=== PATIENT | female | born 1965 | race American Indian/Alaskan Native ===

== ENCOUNTER 2018-05-22 08:52 | Emergency (ER) | payer OTHER ==
[2018-05-22] MEDS ORDERED: BENADRYL IV ONE (10:26)
[2018-05-22] MEDS ORDERED: CATAPRES PO ONE (10:26)
[2018-05-22] MEDS ORDERED: REGLAN IV ONE (10:26)
[2018-05-22] MEDS ORDERED: NACL 0.9% 500 ML 500 ML IV ONE (10:27)
--- NOTE | 2018-05-22 10:32 | Emergency Department Report ---
ED Headache HPI - General Chief Complaint: Headache Stated Complaint: HEADACHE/BODY NUMBNESS Time Seen by Provider: 05/22/18 09:38 - History of Present Illness Initial Comments: 53-year-old female with history of hypertension and fibromyalgia presents to ED with complaint of headache. Patient reports occipital headache 3 weeks, worse this morning with associated dizziness and numbness and tingling in all 4 extremities. She denies nausea and vomiting. She denies fever. Patient states has been taking ibuprofen for pain but was instructed by her PCP to decrease use due to kidney function. Patient states this morning had a was more intense than usual. Also reports that this is not typically associated with her headache. Patient states was seen by her military technology manager yesterday and diagnosed with fibromyalgia. She has history of hypertension, reports taking BP meds this morning. Timing/Duration: 1-3 hours Quality: severe Recent Head Trauma: no recent headache/trauma, frequent headaches Associated Symptoms: denies: confusion, fever/chills, nausea/vomiting Allergies/Adverse Reactions: Allergies No Known Allergies Allergy (Unverified 05/10/13 13:00) Home Medications: Ambulatory Orders Amlodipine Besylate [Norvasc] 5 mg PO DAILY 05/10/13 Cyanocobalamin [Vitamin B-12] 1,000 mcg IM QMONTH 05/10/13 Lisinopril [Zestril] 12.5 mg PO QDAY 05/10/13 Butalb/Acetaminophen/Caffeine [Fioricet 50-300-40 mg CAP] 1 cap PO Q6HR PRN #10 cap 05/22/18 ED Review of Systems ROS: Stated complaint: HEADACHE/BODY NUMBNESS Other details as noted in HPI Comment: All other systems reviewed and negative Constitutional: denies: chills, fever Eyes: other (blurred vision) Cardiovascular: denies: chest pain Gastrointestinal: denies: nausea, vomiting Musculoskeletal: back pain, other (neck pain) Skin: denies: rash Neurological: headache, paresthesias, other (dizziness). denies: confusion ED Past Medical Hx - Past Medical History Hx Hypertension: Yes - Social History Smoking Status: Former Smoker Substance Use Type: None - Medications Home Medications: Home Medications Medication Instructions Recorded Confirmed Last Taken Type Amlodipine Besylate [Norvasc] 5 mg PO DAILY 05/10/13 05/17/13 05/17/13 History Cyanocobalamin [Vitamin B-12] 1,000 mcg IM QMONTH 05/10/13 05/17/13 05/15/13 History Lisinopril [Zestril] 12.5 mg PO QDAY 05/10/13 05/17/13 05/17/13 History Butalb/Acetaminophen/Caffeine 1 cap PO Q6HR PRN #10 cap 05/22/18 Unknown Rx [Fioricet 50-300-40 mg CAP] ED Physical Exam - General Limitations: No Limitations General appearance: alert, in no apparent distress, obese - Head Head exam: Present: atraumatic, normocephalic - Eye Eye exam: Present: normal appearance, PERRL, EOMI - ENT ENT exam: Present: mucous membranes moist - Neck Neck exam: Present: normal inspection, full ROM. Absent: tenderness, meningismus - Respiratory Respiratory exam: Present: normal lung sounds bilaterally. Absent: respiratory distress - Cardiovascular Cardiovascular Exam: Present: regular rate, normal rhythm - GI/Abdominal GI/Abdominal exam: Present: soft. Absent: tenderness - Extremities Exam Extremities exam: Present: normal inspection - Neurological Exam Neurological exam: Present: alert, oriented X3, CN II-XII intact. Absent: motor sensory deficit (strength 5/5 throughout; nml sensation present) - Psychiatric Psychiatric exam: Present: normal affect, normal mood - Skin Skin exam: Present: warm, dry, intact, normal color. Absent: rash ED Course Vital Signs 05/22/18 05/22/18 05/22/18 09:02 10:53 10:56 Temperature 97.5 F L Pulse Rate 87 63 63 Respiratory 20 Rate Blood Pressure 182/109 126/81 Blood Pressure 126/81 [Right] O2 Sat by Pulse 98 Oximetry ED Medical Decision Making - Lab Data Result diagrams: 05/22/18 10:55 05/22/18 10:55 - Radiology Data Radiology results: report reviewed, image reviewed - Medical Decision Making 53-year-old female with occipital headache for several weeks now present to the ED with worsening headache and paresthesias in all 4 extremities. Patient was initially hypertensive, however, BP resolved without medical intervention. Patient had normal neuro exam with no deficits present. CT scan negative. Urine and blood work also negative. Patient given IV fluids and Reglan and Benadryl. She reports is feeling much better and symptoms are resolving. Will discharge with prescription for Fioricet. Will also give information for neuro follow up since headache has been ongoing for 3 weeks. - Differential Diagnosis intracranial bleed; hypertensive RAMSEY; fibromyalgia Critical care attestation.: If time is entered above; I have spent that time in minutes in the direct care of this critically ill patient, excluding procedure time. ED Disposition Clinical Impression: Headache Disposition: DC-01 TO HOME OR SELFCARE Is pt being admited?: No Condition: Stable Instructions: Acute Headache (ED), Tension Headache (ED), Migraine Headache (ED ), Cluster Headache (ED) Prescriptions: Butalb/Acetaminophen/Caffeine [Fioricet 50-300-40 mg CAP] 1 cap PO Q6HR PRN #10 cap PRN Reason: Headache Referrals: PRIMARY CAREMD [Primary Care Provider] - 3-5 Days NEVILLE MARTINEZ MD [Staff Physician] - 3-5 Days Time of Disposition: 12:25
[2018-05-22 10:53] VITALS: BP 126/81
[2018-05-22 11:09] LABS: Bilirubin,Urine NEG (Negative); Blood,Urine NEG (Negative); Color,Urine Yellow (Yellow); Mucus,Urine FEW /HPF; Protein,Urine <15 mg/dL mg/dL (Negative); Urobilinogen,Urine < 2.0 mg/dL (<2.0)
--- NOTE | 2018-05-22 11:20 | Cat Scan Report ---
FINAL REPORT EXAM: CT HEAD/BRAIN WO CON HISTORY: headache TECHNIQUE: CT of the head was performed. No intravenous contrast was administered. PRIORS: None. FINDINGS: There is no evidence of intracranial hemorrhage. There is no edema, mass effect or midline shift. There are no abnormal extra-axial fluid collections. The ventricles are appropriate for brain volume. There is no skull fracture seen. The visualized aspects of the sinuses are clear. IMPRESSION: There is no acute intracranial abnormality identified.
[2018-05-22 11:24] LABS: RBC,Urine < 1.0 /HPF (0.0-6.0); WBC,Urine < 1.0 /HPF (0.0-6.0)
[2018-05-22 11:40] LABS: Basophils # (Auto) 0.1 K/mm3 (0.0-0.1); Basophils % (Auto) 0.8 % (0.0-1.8); Eosinophils # (Auto) 0.1 K/mm3 (0.0-0.4); Eosinophils % (Auto) 1.3 % (0.0-4.3); Hematocrit 38.7 % (30.3-42.9); Hemoglobin 12.5 gm/dl (10.1-14.3); Lymphocytes # (Auto) 2.5 K/mm3 (1.2-5.4); Lymphocytes % (Auto) 31.6 % (13.4-35.0); Mean Corpuscular HGB Conc 32 % (30-34); Mean Corpuscular Hemoglobin 30 pg (28-32); Mean Corpuscular Volume 92 fl (79-97); Monocytes # (Auto) 0.6 K/mm3 (0.0-0.8); Monocytes % (Auto) 8.1 % (0.0-7.3); Platelet Count 227 K/mm3 (140-440); Red Blood Count 4.21 M/mm3 (3.65-5.03); Red Cell Distribution Width 13.4 % (13.2-15.2)
[2018-05-22 11:41] LABS: BUN/Creatinine Ratio 18; Blood Urea Nitrogen 18 mg/dL (7-17); Calcium 9.5 mg/dL (8.4-10.2); Hemolysis Index 9
== END 2018-05-22 12:40 | disposition home or self-care (01) ==
LOC: ED 08:52
DX: R51 Headache (principal); R20.2 Paresthesia of skin; I10 Essential (primary) hypertension; M79.7 Fibromyalgia; Z87.891 Personal history of nicotine dependence
CPT/HCPCS: 36415; 70450; 80048; 81001; 85025; 93005; 93010; 96374; 96375; 99284; J1200; J2765; J7040

== ENCOUNTER 2020-02-14 11:10 | Inpatient (IN) | payer OTHER ==
[2020-02-14] MEDS ORDERED: ONDANSETRON 4 MG/2 ML INJ IV ONE ×2 (12:13→15:23)
[2020-02-14] MEDS ORDERED: SODIUM CHLORIDE 0.9% 1000 ML 1,000 ML IV ONE ×2 (12:13→15:16)
[2020-02-14] MEDS ORDERED: PANTOPRAZOLE 40 MG INJ IV ONE (12:46)
[2020-02-14 13:43] LABS: INR 1.08 (0.87-1.13)
[2020-02-14 13:44] LABS: Partial Thromboplastin Time 19.9 Sec. (24.2-36.6)
--- NOTE | 2020-02-14 13:47 | Emergency Department Report ---
ED Abdominal Pain HPI - General Chief Complaint: Abdominal Pain Stated Complaint: BLACK STOOL/NO APPLETITE Time Seen by Provider: 02/14/20 12:13 Source: patient Mode of arrival: Ambulatory Limitations: No Limitations - History of Present Illness Initial Comments: 55-year-old female with a past medical history of hypertension, fibromyalgia, intermittent headaches, previous right oophorectomy due to ovarian cyst with subsequent right lower quadrant incisional hernia repair presents to the hospital complains of nausea, headache, and abdominal pain x2-3 WEEKS. Patient reports decreased appetite and gradual 14 pound weight loss since January. Patient complains of ongoing dull intermittent right lower quadrant pain that is sharp with movement. Patient states she has had intermittent pain since her oophorectomy in the past. Patient taking Goody powders for pain and also taken meloxicam for musculoskeletal pain. Patient states today she developed multiple episodes of black diarrhea. She did take Pepto-Bismol yesterday. She denies fever, recent travel, or sick contacts. Denies history of peptic ulcer disease or GI bleed. Patient presents today with systolic pressure in the 80s and 90s. States that her last blood pressure was 118 systolic. She did not take her blood pressure medication this morning due to repeated episodes of diarrhea. She does endorse lightheadedness. Patient states she had a recent negative COVID test. - Related Data Home Medications Medication Instructions Recorded Confirmed Last Taken Amlodipine Besylate [Norvasc] 5 mg PO DAILY 05/10/13 05/17/13 05/17/13 Cyanocobalamin [Vitamin B-12] 1,000 mcg IM QMONTH 05/10/13 05/17/13 05/15/13 lisinopriL [Zestril] 12.5 mg PO QDAY 05/10/13 05/17/13 05/17/13 Previous Rx's Medication Instructions Recorded Last Taken Type Butalb/Acetaminophen/Caffeine 1 cap PO Q6HR PRN #10 cap 05/22/18 Unknown Rx [Fioricet 50-300-40 mg CAP] Allergies Allergy/AdvReac Type Severity Reaction Status Date / Time No Known Allergies Allergy Unverified 05/10/13 13:00 ED Review of Systems ROS: Stated complaint: BLACK STOOL/NO APPLETITE Other details as noted in HPI Comment: All other systems reviewed and negative ED Past Medical Hx - Past Medical History Hx Hypertension: Yes - Surgical History Past Surgical History?: Yes Additional Surgical History: Right oophorectomy for ovarian cyst. Right incisional/abdominal hernia repair - Social History Smoking Status: Former Smoker Substance Use Type: None - Medications Home Medications: Home Medications Medication Instructions Recorded Confirmed Last Taken Type Amlodipine Besylate [Norvasc] 5 mg PO DAILY 05/10/13 05/17/13 05/17/13 History Cyanocobalamin [Vitamin B-12] 1,000 mcg IM QMONTH 05/10/13 05/17/13 05/15/13 History lisinopriL [Zestril] 12.5 mg PO QDAY 05/10/13 05/17/13 05/17/13 History Butalb/Acetaminophen/Caffeine 1 cap PO Q6HR PRN #10 cap 05/22/18 Unknown Rx [Fioricet 50-300-40 mg CAP] ED Physical Exam - General Limitations: No Limitations - Other Other exam information: General: No acute distress Head: Atraumatic Eyes: normal appearance ENT: Moist mucous membranes Neck: Normal appearance, no midline tenderness Chest: Clear to auscultation bilaterally CV: Regular rate and rhythm Abdomen: Soft, normal bowel sounds, well-healed scar to the right lower quadrant area from previous surgery. Right lower quadrant tenderness without rebound or guarding on examination Rectal: Dark brown stool faintly guaiac positive, no gross blood Back: Normal inspection Extremity: Normal inspection, full range of motion Neuro: Alert O x 3, no facial asymmetry, speech clear, no gross motor sensory deficit Psych: Appropriate behavior Skin: No rash ED Course Vital Signs 02/14/20 02/14/20 02/14/20 12:15 13:30 14:56 Pulse Rate 72 80 82 Respiratory 20 20 20 Rate Blood Pressure 96/61 103/48 103/58 [Right] O2 Sat by Pulse 95 95 95 Oximetry ED Medical Decision Making - Lab Data Result diagrams: 02/14/20 12:52 02/14/20 12:52 Lab Results 02/14/20 02/14/20 02/14/20 Range/Units 12:20 12:52 12:52 WBC 16.2 H (4.5-11.0) K/mm3 RBC 3.73 (3.65-5.03) M/mm3 Hgb 11.3 (10.1-14.3) gm/dl Hct 33.8 (30.3-42.9) % MCV 91 (79-97) fl MCH 30 (28-32) pg MCHC 33 (30-34) % RDW 13.3 (13.2-15.2) % Plt Count 435 (140-440) K/mm3 Lymph % (Auto) 12.0 L (13.4-35.0) % [place] % (Auto) 7.6 H (0.0-7.3) % Eos % (Auto) 0.2 (0.0-4.3) % Baso % (Auto) 0.3 (0.0-1.8) % Lymph # 1.9 (1.2-5.4) K/mm3 [place] # 1.2 H (0.0-0.8) K/mm3 Eos # 0.0 (0.0-0.4) K/mm3 Baso # 0.1 (0.0-0.1) K/mm3 Seg Neutrophils % 79.9 H (40.0-70.0) % Seg Neutrophils # 12.9 H (1.8-7.7) K/mm3 PT 13.8 (12.2-14.9) Sec. INR 1.08 (0.87-1.13) APTT 19.9 L (24.2-36.6) Sec. Sodium (137-145) mmol/L Potassium (3.6-5.0) mmol/L Chloride (98-107) mmol/L Carbon Dioxide (22-30) mmol/L Anion Gap mmol/L BUN (7-17) mg/dL Creatinine (0.7-1.2) mg/dL Estimated GFR ml/min BUN/Creatinine Ratio % Glucose (65-100) mg/dL Calcium (8.4-10.2) mg/dL Total Bilirubin (0.1-1.2) mg/dL AST (5-40) units/L ALT (7-56) units/L Alkaline Phosphatase (35-129) units/L Total Protein (6.3-8.2) g/dL Albumin (3.9-5) g/dL Albumin/Globulin Ratio % Lipase (13-60) units/L Urine Color Dal[place] (Yellow) Urine Turbidity Cloudy (Clear) Urine pH 5.0 (5.0-7.0) Ur Specific [place] 1.024 (1.003-1.030) Urine Protein 30 mg/dl (Negative) mg/dL Urine Glucose (UA) Neg (Negative) mg/dL Urine Ketones Neg (Negative) mg/dL Urine Blood Neg (Negative) Urine Nitrite Neg (Negative) Urine Bilirubin Sm (Negative) Urine Ictotest Not Reportable Urine Urobilinogen 4.0 (<2.0) mg/dL Ur Leukocyte Esterase Tr (Negative) Urine WBC (Auto) 10.0 H (0.0-6.0) /HPF Urine RBC (Auto) 6.0 (0.0-6.0) /HPF U Epithel Cells (Auto) 9.0 (0-13.0) /HPF Urine Mucus 1+ /HPF Blood Type Antibody Screen 02/14/20 02/14/20 Range/Units 12:52 12:52 WBC (4.5-11.0) K/mm3 RBC (3.65-5.03) M/mm3 Hgb (10.1-14.3) gm/dl Hct (30.3-42.9) % MCV (79-97) fl MCH (28-32) pg MCHC (30-34) % RDW (13.2-15.2) % Plt Count (140-440) K/mm3 Lymph % (Auto) (13.4-35.0) % [place] % (Auto) (0.0-7.3) % Eos % (Auto) (0.0-4.3) % Baso % (Auto) (0.0-1.8) % Lymph # (1.2-5.4) K/mm3 [place] # (0.0-0.8) K/mm3 Eos # (0.0-0.4) K/mm3 Baso # (0.0-0.1) K/mm3 Seg Neutrophils % (40.0-70.0) % Seg Neutrophils # (1.8-7.7) K/mm3 PT (12.2-14.9) Sec. INR (0.87-1.13) APTT (24.2-36.6) Sec. Sodium 136 L (137-145) mmol/L Potassium 3.7 (3.6-5.0) mmol/L Chloride 94.7 L (98-107) mmol/L Carbon Dioxide 26 (22-30) mmol/L Anion Gap 19 mmol/L BUN 22 H (7-17) mg/dL Creatinine 1.8 H (0.7-1.2) mg/dL Estimated GFR 35 ml/min BUN/Creatinine Ratio 12 % Glucose 100 (65-100) mg/dL Calcium 9.7 (8.4-10.2) mg/dL Total Bilirubin 0.30 (0.1-1.2) mg/dL AST 15 (5-40) units/L ALT 17 (7-56) units/L Alkaline Phosphatase 75 (35-129) units/L Total Protein 8.0 (6.3-8.2) g/dL Albumin 3.3 L (3.9-5) g/dL Albumin/Globulin Ratio 0.7 % Lipase 25 (13-60) units/L Urine Color (Yellow) Urine Turbidity (Clear) Urine pH (5.0-7.0) Ur Specific [place] (1.003-1.030) Urine Protein (Negative) mg/dL Urine Glucose (UA) (Negative) mg/dL Urine Ketones (Negative) mg/dL Urine Blood (Negative) Urine Nitrite (Negative) Urine Bilirubin (Negative) Urine Ictotest Urine Urobilinogen (<2.0) mg/dL Ur Leukocyte Esterase (Negative) Urine WBC (Auto) (0.0-6.0) /HPF Urine RBC (Auto) (0.0-6.0) /HPF U Epithel Cells (Auto) (0-13.0) /HPF Urine Mucus /HPF Blood Type O POSITIVE Antibody Screen Negative - Radiology Data Radiology results: report reviewed CT head/brain wo con INDICATION / CLINICAL INFORMATION: 55 years Female; RAMSEY AND NAUSEA. TECHNIQUE: Routine CT head without contrast. All CT scans at this location are performed using CT dose reduction for ALARA by means of automated exposure control. COMPARISON: No previous exams are currently available for direct comparison. 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 The ventricular system is appropriate in size and configuration. There is no CT evidence of acute intracranial hemorrhage or significant mass effect. ORBITS: No significant abnormality of visualized orbits. SINUSES / MASTOIDS: No significant abnormality in the visualized paranasal sinuses or mastoid air cells. CRANIOCERVICAL JUNCTION: No significant abnormality. ADDITIONAL FINDINGS: None. IMPRESSION: 1. There is no CT evidence of acute intracranial process. CT ABDOMEN AND PELVIS WITHOUT CONTRAST HISTORY: RLQ PAIN, HX OF R oophorectomy and hernia repair COMPARISON: None. TECHNIQUE: Axial CT images were obtained through the abdomen and pelvis without IV contrast. Sagittal and coronal reformatted images. All CT scans at this location are performed using CT dose reduction for ALARA by means of automated exposure control. FINDINGS: CT ABDOMEN: Lung Bases: Clear. Liver: No significant abnormality. Biliary: No significant abnormality. Spleen: No significant abnormality. Unenlarged. Pancreas: No significant abnormality. Adrenals: No significant abnormality. Kidneys: No significant abnormality. Lymphatics: No lymphadenopathy. Vascu lature: Mild diffuse aortic and iliac calcifications. Bowel/Peritoneum: There are moderate inflammatory changes in the right lower quadrant in the vicinity of the appendix. The appendix appears to be retrocecal in location. There is trace free air in this area which could represent early perforation. No abscess. The remainder of the bowel loops are unremarkable. CT PELVIS: : No significant abnormality. Osseous Structures: Moderate thoracolumbar spondylosis. Additional Findings: Previous ventral wall hernia repair appears intact. IMPRESSION: Findings concerning for acute appendicitis as outlined above. - Medical Decision Making Patient presents with black stools, diarrhea, nausea, worsening right lower quadrant pain. Stool sample is dark in color and faintly positive. H&H normal. Patient admits to recent Pepto-Bismol use which could cause change in stool color. Patient has leukocytosis and appendicitis on CT. Possible microperforation. Zosyn ordered. Borderline hypotension treated with normal saline. Patient treated with Dilaudid and Zofran. Case discussed with on-call surgeon who will try to get patient on the schedule today. Hospitalist to admit patient Critical Care Time: No Critical care attestation.: If time is entered above; I have spent that time in minutes in the direct care of this critically ill patient, excluding procedure time. ED Disposition Clinical Impression: Acute appendicitis, UTI (urinary tract infection), History of right oophorectomy, Renal insufficiency Disposition: OP ADMIT IP TO THIS HOSP Is pt being admited?: Yes Does the pt Need Aspirin: No Condition: Stable Time of Disposition: 15:30 (Dr Ross/hosp)
[2020-02-14 13:57] LABS: Albumin 3.3 g/dL (3.9-5); Calcium 9.7 mg/dL (8.4-10.2)
[2020-02-14 14:03] LABS: Basophils # (Auto) 0.1 K/mm3 (0.0-0.1); Basophils % (Auto) 0.3 % (0.0-1.8); Eosinophils % (Auto) 0.2 % (0.0-4.3); Hematocrit 33.8 % (30.3-42.9); Hemoglobin 11.3 gm/dl (10.1-14.3); Lymphocytes # (Auto) 1.9 K/mm3 (1.2-5.4); Mean Corpuscular HGB Conc 33 % (30-34); Mean Corpuscular Volume 91 fl (79-97); Monocytes # (Auto) 1.2 K/mm3 (0.0-0.8); Monocytes % (Auto) 7.6 % (0.0-7.3); Platelet Count 435 K/mm3 (140-440); Red Blood Count 3.73 M/mm3 (3.65-5.03); Red Cell Distribution Width 13.3 % (13.2-15.2)
[2020-02-14] MEDS ORDERED: HYDROmorphone 1 MG/1 ML INJ IV ONE (14:51)
--- NOTE | 2020-02-14 14:53 | Cat Scan Report ---
CT head/brain wo con INDICATION / CLINICAL INFORMATION: 55 years Female; RAMSEY AND NAUSEA. TECHNIQUE: Routine CT head without contrast. All CT scans at this location are performed using CT dos e reduction for ALARA by means of automated exposure control. COMPARISON: No previous exams are currently available for direct comparison. FINDINGS: BRAIN / INTRACRANIAL CONTENTS: There appears be mild cerebral white matter disease most consistent wi th microvascular angiopathy. The ventricular system is appropriate in size and configuration. There i s no CT evidence of acute intracranial hemorrhage or significant mass effect. ORBITS: No significant abnormality of visualized orbits. SINUSES / MASTOIDS: No significant abnormality in the visualized paranasal sinuses or mastoid air arianne ls. CRANIOCERVICAL JUNCTION: No significant abnormality. ADDITIONAL FINDINGS: None. IMPRESSION: 1. There is no CT evidence of acute intracranial process. Signer Name: Ross Denise MD Signed: 02/14/2020 2:48 PM Workstation Name: [id number]
--- NOTE | 2020-02-14 15:05 | Cat Scan Report ---
CT ABDOMEN AND PELVIS WITHOUT CONTRAST HISTORY: RLQ PAIN, HX OF R oophorectomy and hernia repair COMPARISON: None. TECHNIQUE: Axial CT images were obtained through the abdomen and pelvis without IV contrast. Sagittal and coronal reformatted images. All CT scans at this location are performed using CT dose reduction for ALARA by means of automated exposure control. FINDINGS: CT ABDOMEN: Lung Bases: Clear. Liver: No significant abnormality. Biliary: No significant abnormality. Spleen: No significant abnormality. Unenlarged. Pancreas: No significant abnormality. Adrenals: No significant abnormality. Kidneys: No significant abnormality. Lymphatics: No lymphadenopathy. Vasculature: Mild diffuse aortic and iliac calcifications. Bowel/Peritoneum: There are moderate inflammatory changes in the right lower quadrant in the vicinity of the appendix. The appendix appears to be retrocecal in location. There is trace free air in this area which could represent early perforation. No abscess. The remainder of the bowel loops are unrema rkable. CT PELVIS: : No significant abnormality. Osseous Structures: Moderate thoracolumbar spondylosis. Additional Findings: Previous ventral wall hernia repair appears intact. IMPRESSION: Findings concerning for acute appendicitis as outlined above. Critical result discovered at 1500 hours and called to Dr. Bardales at 1501 hours on 02/14/2020. A read ba ck was performed. Signer Name: Jimbo Copeland Jr, MD Signed: 02/14/2020 3:00 PM Workstation Name: [id number]
[2020-02-14] MEDS ORDERED: PIPERACIL/TAZOBACTA 4.5/NS 100 4.5 GM/100 ML VIAL IV ONE (15:09)
[2020-02-14 15:21] LABS: Bilirubin,Urine SM (Negative); Blood,Urine NEG (Negative); Color,Urine Amber (Yellow); Mucus,Urine 1+ /HPF
[2020-02-14] MEDS ORDERED: ACETAMINOPHEN 325 MG TAB PO PRN (15:32)
[2020-02-14] MEDS ORDERED: ONDANSETRON 4 MG/2 ML INJ IV PRN ×2 (15:32→16:08)
--- NOTE | 2020-02-14 15:35 | History and Physical Report ---
History of Present Illness Chief complaint: My stomach hurts History of present illness: 55 YO Female with HTN, FM, Obesity Hypoventilation Syndrome presents to ED for evaluation. Patient states that she had experienced abdominal pain over the past 3 weeks with progressively worsening symptoms over the past 4 days. Patient knowledges decreased oral intake over the past 3 weeks resulting in a 14 pound weight loss. Patient also reports blood in her stool over the past 1 day. Patient states that her abdominal pain is currently 6/10, constant, dull in nature, associated with decreased appetite, associated with nausea, and multiple episodes of vomiting. Patient transported to [facility] via private vehicle for [facility] care and evaluation. Patient seen and evaluated in the emergency department. Lab and imaging studies reviewed. Patient underwent CT scan of the abdomen and pelvis which revealed appendicitis with perforation. Patient also found to have acute kidney injury, urinary tract infection, as well as systemic inflammatory response syndrome, and hyponatremia. Patient admitted to surgical floor for fu rther care. Surgical team consulted in ED. Patient denies fever, chills, chest pain, palpitation, productive cough, skin rash, known exposure to COVID-19. Past History Past Medical History: hypertension, other (See HPI) Past Surgical History: hernia repair, Other (Right oophorectomy for ovarian cyst. Right incisional/abdominal hernia repair) Social history: , lives with family. denies: smoking, alcohol abuse, prescription drug abuse Family history: hypertension Medications and Allergies Allergies Allergy/AdvReac Type Severity Reaction Status Date / Time No Known Allergies Allergy Unverified 05/10/13 13:00 Home Medications Medication Instructions Recorded Confirmed Last Taken Type Amlodipine Besylate [Norvasc] 5 mg PO DAILY 05/10/13 05/17/13 05/17/13 History Cyanocobalamin [Vitamin B-12] 1,000 mcg IM QMONTH 05/10/13 05/17/13 05/15/13 History lisinopriL [Zestril] 12.5 mg PO QDAY 05/10/13 05/17/13 05/17/13 History Butalb/Acetaminophen/Caffeine 1 cap PO Q6HR PRN #10 cap 05/22/18 Unknown Rx [Fioricet 50-300-40 mg CAP] Active Meds: Active Medications Piperacillin Sod/Tazobactam Sod (Zosyn/Ns 4.5gm/100ml) 4.5 gm in 100 mls @ 200 mls/hr IV ONCE ONE; Protocol Stop: 02/14/20 15:38 Last Admin: 02/14/20 15:20 Dose: 200 mls/hr Documented by: Sodium Chloride (Nacl 0.9% 1000 Ml) 1,000 mls @ 999 mls/hr IV BOLUS ONE Stop: 02/14/20 16:16 Last Admin: 02/14/20 15:26 Dose: 999 mls/hr Documented by: Sodium Chloride (Nacl 0.9% 1000 Ml) 1,000 mls @ 150 mls/hr IV DIRECT CONCHA Review of Systems Constitutional: weight loss, no weight gain, no fever, no chills Ears, nose, mouth and throat: no ear pain, no ear discharge, no tinnitis, no decreased hearing Breasts: no change in shape, no swelling, no mass Cardiovascular: no chest pain, no orthopnea, no palpitations, no rapid/irregular heart beat, no edema, no syncope Respiratory: no cough, no cough with sputum, no excessive sputum, no hemoptysis, no shortness of breath Gastrointestinal: abdominal pain, nausea, vomiting, no coffee ground emesis, no hematochezia, no loss of appetite, no early satiety, no heartburn Genitourinary Female: no pelvic pain, no flank pain, no menorrhagia, no dysuria, no urinary frequency, no urgency Rectal: no pain, no incontinence, no bleeding Musculoskeletal: no neck stiffness, no neck pain, no shooting arm pain, no arm numbness/tingling, no low back pain, no shooting leg pain Integumentary: no rash, no pruritis, no redness, no sores, no jaundice Neurological: no paralysis, no weakness, no parathesias, no numbness, no tingling, no seizures, no syncope Psychiatric: no anxiety, no memory loss, no sleep disturbances, no insomnia, no change in libido, no suicidal ideation, no disorientation Endocrine: no cold intolerance, no heat intolerance, no polyphagia, no excessive thirst, no polydipsia, no polyuria, no nocturia Hematologic/Lymphatic: no easy bruising, no easy bleeding Allergic/Immunologic: no urticaria, no allergic rhinitis, no wheezing Exam - Constitutional Vitals: Temp Pulse Resp BP Pulse Ox 82 20 103/58 95 02/14/20 14:56 02/14/20 14:56 02/14/20 14:56 02/14/20 14:56 General appearance: Present: mild distress, obese - EENT Eyes: Present: PERRL ENT: hearing intact, clear oral mucosa - Neck Neck: Present: supple, normal ROM - Respiratory Respiratory effort: normal Respiratory: bilateral: CTA - Cardiovascular Heart Sounds: Present: S1 & S2. Absent: rub, click - Extremities Extremities: pulses symmetrical, No edema Peripheral Pulses: within normal limits - Abdominal General gastrointestinal: Present: soft, non-tender, non-distended, normal bowel sounds Localized gastrointestinal: tender: RLQ Female genitourinary: Present: normal - Integumentary Integumentary: Present: clear, warm, dry - Musculoskeletal Musculoskeletal: gait normal, strength equal bilaterally - Psychiatric Psychiatric: appropriate mood/affect, intact judgment & insight - Neurologic Neurologic: CNII-XII intact, moves all extremities Results - Labs CBC & Chem 7: 02/14/20 12:52 02/14/20 12:52 Labs: Abnormal lab results 02/14/20 02/14/20 02/14/20 Range/Units 12:20 12:52 12:52 WBC 16.2 H (4.5-11.0) K/mm3 Lymph % (Auto) 12.0 L (13.4-35.0) % [place] % (Auto) 7.6 H (0.0-7.3) % [place] # 1.2 H (0.0-0.8) K/mm3 Seg Neutrophils % 79.9 H (40.0-70.0) % Seg Neutrophils # 12.9 H (1.8-7.7) K/mm3 APTT 19.9 L (24.2-36.6) Sec. Sodium (137-145) mmol/L Chloride (98-107) mmol/L BUN (7-17) mg/dL Creatinine (0.7-1.2) mg/dL Albumin (3.9-5) g/dL Urine WBC (Auto) 10.0 H (0.0-6.0) /HPF 02/14/20 Range/Units 12:52 WBC (4.5-11.0) K/mm3 Lymph % (Auto) (13.4-35.0) % [place] % (Auto) (0.0-7.3) % [place] # (0.0-0.8) K/mm3 Seg Neutrophils % (40.0-70.0) % Seg Neutrophils # (1.8-7.7) K/mm3 APTT (24.2-36.6) Sec. Sodium 136 L (137-145) mmol/L Chloride 94.7 L (98-107) mmol/L BUN 22 H (7-17) mg/dL Creatinine 1.8 H (0.7-1.2) mg/dL Albumin 3.3 L (3.9-5) g/dL Urine WBC (Auto) (0.0-6.0) /HPF Assessment and Plan - Patient Problems (1) Appendicitis with perforation Current Visit: Yes Status: Acute Plan to address problem: CT scan abdomen and pelvis, serial physical exam, surgery team consulted, IV antibiotic therapy, IV fluid resuscitation therapy, bowel rest, pain control, supportive care. (2) Acute kidney injury (DELICIA) with acute tubular necrosis (ATN) Current Visit: Yes Status: Acute Plan to address problem: CMP, IV fluid resuscitation therapy, monitor urine output every shift, (3) Systemic inflammatory response syndrome (SIRS) due to infectious process Current Visit: Yes Status: Acute Plan to address problem: CBC, CMP, chest x-ray, urinalysis, CT scan abdomen and pelvis, IV antibiotic therapy, repeat CBC in a.m. (4) Hyponatremia Current Visit: Yes Status: Acute Plan to address problem: IV fluid resuscitation therapy, BMP, repeat BMP in a.m. (5) UTI (urinary tract infection) Current Visit: Yes Status: Acute Qualifiers: Encounter type: initial encounter Plan to address problem: CBC, CMP, urinalysis, IV antibiotic therapy (6) Obesity hypoventilation syndrome Current Visit: Yes Status: Acute Plan to address problem: Submental oxygen, pulse oximetry, early ambulation, incentive spirometry, balanced diet, increase physical activity at discharge, outpatient bariatric surgery consult, outpatient pulmonology consult for sleep study. (7) DVT prophylaxis Current Visit: Yes Status: Acute Plan to address problem: SCD to bilateral lower extremities while in bed, patient is ambulatory
[2020-02-14] MEDS ORDERED: SODIUM CHLORIDE 0.9% 1000 ML 1,000 ML IV SCH (15:45)
[2020-02-14] MEDS ORDERED: fentaNYL 100 MCG/2 ML INJ IV PRN (16:08)
[2020-02-14] MEDS ORDERED: LIDOCAINE MPF (2%) 20 MG/1 ML VIAL 5 ML ONE (16:08)
[2020-02-14] MEDS ORDERED: ROCURONIUM 50 MG/5 ML INJ IV ONE (16:08)
[2020-02-14] MEDS ORDERED: ONDANSETRON 4 MG/2 ML INJ ONE (16:08)
[2020-02-14] MEDS ORDERED: dexAMETHasone 20 MG/5 ML VIAL ONE (16:08)
--- NOTE | 2020-02-14 16:08 | Anesthesia Day of Surgery ---
Anesthesia Day of Surgery - Day of Surgery Patient Examined: Yes Patient H&P Reviewed: Yes Patient is NPO: Yes
--- NOTE | 2020-02-14 16:08 | Anesthesia Consultation ---
Anesthesia Consult and Med Hx Date of service: 02/14/20 - Airway Anesthetic Teeth Evaluation: Good ROM Head & Neck: Adequate Mental/Hyoid Distance: Adequate Mallampati Class: Class I Intubation Access Assessment: Good - Pulmonary Exam CTA: Yes - Cardiac Exam Cardiac Exam: RRR - Pre-Operative Health Status ASA Pre-Surgery Classification: ASA3 Proposed Anesthetic Plan: General - Pulmonary Hx Smoking: Yes (1/2PPD) Hx Respiratory Symptoms: No - Cardiovascular System Hx Hypertension: Yes (no antihypertensives today ) Hx Heart Attack/AMI: No Hx Percutaneous Transluminal Coronary Angioplasty (PTCA): No Hx Cardia Arrhythmia: No - Central Nervous System CVA: No - Gastrointestinal Hx Gastroesophageal Reflux Disease: No - Endocrine Hx Renal Disease: Yes (DELICIA (baseline master esthetician 1.0 per chart review)) Hx Liver Disease: No Hx Insulin Dependent Diabetes: No Hx Non-Insulin Dependent Diabetes: No Hx Thyroid Disease: No - Hematic Hx Anemia: Yes - Other Systems Hx Obesity: Yes (BMI 50) - Additional Comments Anesthesia Medical History Comments: No hx anesthetic complications. + abdominal pain, nausea, no vomiting. Hx fibromyalgia on meloxicam and gabapentin.
[2020-02-14] MEDS ORDERED: propofoL 200 MG/20 ML VIAL IV ONE (16:09)
[2020-02-14] MEDS ORDERED: HYDROmorphone 1 MG/1 ML INJ ONE (16:09)
--- NOTE | 2020-02-14 16:13 | Consultation ---
History of Present Illness Consult date: 02/14/20 Reason for consult: abdominal pain Chief complaint: Abdominal pain - History of present illness History of present illness: 55-year-old female with a past medical history of fibromyalgia, laparoscopic rig ht oophorectomy, laparoscopic ventral hernia repair with mesh who presented to the emergency room with 2 weeks of right lower quadrant abdominal pain. The patient states that at baseline with her fibromyalgia she sometimes has pain and so she felt this was similar to that. However the pain has remained constant and gradually gotten worse. Is localized to the right lower quadrant and does not radiate. There is no alleviating or exacerbating factors. She states that she has lost 15 pounds in the last 3 weeks due to anorexia. She has had nausea but no vomiting. No fevers, chills. She was tested for COVID 1 week ago and was negative. Past History Past Medical History: other (Fibromyalgia, spinal stenosis, hypertension) Past Surgical History: Other (Laparoscopic right oophorectomy, laparoscopic ventral hernia repair with mesh, right rotator cuff surgery, left knee surgery) Social history: no significant social history Family history: no significant family history Medications and Allergies Allergies Allergy/AdvReac Type Severity Reaction Status Date / Time No Known Allergies Allergy Unverified 05/10/13 13:00 Home Medications Medication Instructions Recorded Confirmed Last Taken Type Amlodipine Besylate [Norvasc] 5 mg PO DAILY 05/10/13 05/17/13 05/17/13 History Cyanocobalamin [Vitamin B-12] 1,000 mcg IM QMONTH 05/10/13 05/17/13 05/15/13 History lisinopriL [Zestril] 12.5 mg PO QDAY 05/10/13 05/17/13 05/17/13 History Butalb/Acetaminophen/Caffeine 1 cap PO Q6HR PRN #10 cap 05/22/18 Unknown Rx [Fioricet 50-300-40 mg CAP] Active Meds: Active Medications Acetaminophen (Tylenol) 650 mg PO Q4H PRN PRN Reason: Pain MILD(1-3)/Fever >100.5/RAMSEY Amlodipine Besylate (Amlodipine) 5 mg PO QDAY CONCHA Cyanocobalamin (Vitamin B-12) 1,000 mcg IM QMONTH CONCHA Fentanyl (Sublimaze) 50 mcg IV Q5MIN PRN PRN Reason: Pain , Severe (7-10) Sodium Chloride (Nacl 0.9% 1000 Ml) 1,000 mls @ 999 mls/hr IV BOLUS ONE Stop: 02/14/20 16:16 Last Admin: 02/14/20 15:26 Dose: 999 mls/hr Documented by: Sodium Chloride (Nacl 0.9% 1000 Ml) 1,000 mls @ 150 mls/hr IV DIRECT CONCHA Levofloxacin/Dextrose (Levaquin 500mg/100ml) 500 mg in 100 mls @ 100 mls/hr IV Q24H CONCHA; Protocol Metronidazole (Flagyl 500 Mg/100 Ml) 500 mg in 100 mls @ 100 mls/hr IV Q8H CONCHA; Protocol Sodium Chloride (Nacl 0.9% 1000 Ml) 1,000 mls @ 100 mls/hr IV DIRECT CONCHA Lisinopril (Zestril) 12.5 mg PO QDAY CONCHA Ondansetron HCl (Zofran) 4 mg IV Q8H PRN PRN Reason: Nausea And Vomiting Ondansetron HCl (Zofran) 4 mg IV ONCE PRN PRN Reason: Nausea And Vomiting Sodium Chloride (Sodium Chloride Flush Syringe 10 Ml) 10 ml IV BID CONCHA Sodium Chloride (Sodium Chloride Flush Syringe 10 Ml) 10 ml IV PRN PRN PRN Reason: LINE FLUSH Review of Systems All systems: negative (10 point review of systems was performed negative except for that listed in HPI) Exam Vital Signs Pulse Resp BP Pulse Ox 72 20 96/61 95 02/14/20 12:15 02/14/20 12:15 02/14/20 12:15 02/14/20 12:15 Narrative exam: Gen.: Awake, alert, oriented 3. No apparent distress ENT: Trachea midline. No lymphadenopathy. No scleral icterus or conjunctival pallor CV: S1, S2 present Respiratory: No audible wheezes Abdomen: Soft, obese, nondistended, localized tenderness to palpation in the right lower quadrant. Positive voluntary guarding. No rebound or rigidity Extremities: No clubbing, cyanosis, edema Results - Labs 02/14/20 12:52 02/14/20 12:52 Abnormal lab results 02/14/20 02/14/20 02/14/20 Range/Units 12:20 12:52 12:52 WBC 16.2 H (4.5-11.0) K/mm3 Lymph % (Auto) 12.0 L (13.4-35.0) % [place] % (Auto) 7.6 H (0.0-7.3) % [place] # 1.2 H (0.0-0.8) K/mm3 Seg Neutrophils % 79.9 H (40.0-70.0) % Seg Neutrophils # 12.9 H (1.8-7.7) K/mm3 APTT 19.9 L (24.2-36.6) Sec. Sodium (137-145) mmol/L Chloride (98-107) mmol/L BUN (7-17) mg/dL Creatinine (0.7-1.2) mg/dL Albumin (3.9-5) g/dL Urine WBC (Auto) 10.0 H (0.0-6.0) /HPF 02/14/20 Range/Units 12:52 WBC (4.5-11.0) K/mm3 Lymph % (Auto) (13.4-35.0) % [place] % (Auto) (0.0-7.3) % [place] # (0.0-0.8) K/mm3 Seg Neutrophils % (40.0-70.0) % Seg Neutrophils # (1.8-7.7) K/mm3 APTT (24.2-36.6) Sec. Sodium 136 L (137-145) mmol/L Chloride 94.7 L (98-107) mmol/L BUN 22 H (7-17) mg/dL Creatinine 1.8 H (0.7-1.2) mg/dL Albumin 3.3 L (3.9-5) g/dL Urine WBC (Auto) (0.0-6.0) /HPF Diabetes panel 02/14/20 Range/Units 12:52 Sodium 136 L (137-145) mmol/L Potassium 3.7 (3.6-5.0) mmol/L Chloride 94.7 L (98-107) mmol/L Carbon Dioxide 26 (22-30) mmol/L BUN 22 H (7-17) mg/dL Creatinine 1.8 H (0.7-1.2) mg/dL Glucose 100 (65-100) mg/dL Calcium 9.7 (8.4-10.2) mg/dL AST 15 (5-40) units/L ALT 17 (7-56) units/L Alkaline Phosphatase 75 (35-129) units/L Total Protein 8.0 (6.3-8.2) g/dL Albumin 3.3 L (3.9-5) g/dL Calcium panel 02/14/20 Range/Units 12:52 Calcium 9.7 (8.4-10.2) mg/dL Albumin 3.3 L (3.9-5) g/dL Pituitary panel 02/14/20 Range/Units 12:52 Sodium 136 L (137-145) mmol/L Potassium 3.7 (3.6-5.0) mmol/L Chloride 94.7 L (98-107) mmol/L Carbon Dioxide 26 (22-30) mmol/L BUN 22 H (7-17) mg/dL Creatinine 1.8 H (0.7-1.2) mg/dL Glucose 100 (65-100) mg/dL Calcium 9.7 (8.4-10.2) mg/dL Adrenal panel 02/14/20 Range/Units 12:52 Sodium 136 L (137-145) mmol/L Potassium 3.7 (3.6-5.0) mmol/L Chloride 94.7 L (98-107) mmol/L Carbon Dioxide 26 (22-30) mmol/L BUN 22 H (7-17) mg/dL Creatinine 1.8 H (0.7-1.2) mg/dL Glucose 100 (65-100) mg/dL Calcium 9.7 (8.4-10.2) mg/dL Total Bilirubin 0.30 (0.1-1.2) mg/dL AST 15 (5-40) units/L ALT 17 (7-56) units/L Alkaline Phosphatase 75 (35-129) units/L Total Protein 8.0 (6.3-8.2) g/dL Albumin 3.3 L (3.9-5) g/dL - Imaging CT scan - abdomen: report reviewed, image reviewed CT scan - pelvis: report reviewed, image reviewed Assessment and Plan 55-year-old female with 1. Acute appendicitis 2. Urinary tract infection 3. Acute kidney injury Plan: 1. Admit to hospitalist service 2. IV fluids -2 L normal saline bolus given in the emergency room. Will start normal saline at 150 cc an hour 3. IV antibioticsZosyn 4. PRN pain control 5. DVT prophylaxis 6. Recommend OR for appendectomy. I discussed all laboratory and imaging find ings supporting the diagnosis of acute appendicitis to the patient. I discussed all risks, benefits, alternatives to surgery with the patient and questions were answered. Consent obtained. The patient is notifying her family of the plan. Thank you, please call with questions or concerns.
[2020-02-14] MEDS ORDERED: LIDOCAINE (1%) 10 MG/1 ML VIAL 20 ML MDV ONE (16:17)
[2020-02-14] MEDS ORDERED: BUPIVACAINE/PF (0.5%) 5 MG/1 ML 30 ML VIAL INFILTRATI ONE ×2 (16:18→18:45)
[2020-02-14] MEDS ORDERED: metroNIDAZOLE/NS 500 MG/100 ML 500 MG/100 ML BAG IV ONE (16:26)
[2020-02-14] MEDS: metroNIDAZOLE/NS 500 MG/100 ML 500 MG/100 ML BAG IV SCH (16:33)
[2020-02-14] MEDS ORDERED: SUCCINYLCHOLINE CHLORIDE 200 MG/10 ML INJ MDV ONE (18:00)
[2020-02-14] MEDS ORDERED: LACTATED RINGERS 2,000 ML ONE (18:21)
[2020-02-14] MEDS ORDERED: SODIUM CHLORIDE 0.9% IRR 1,500 ML BOTTLE IR ONE (18:46)
[2020-02-14] MEDS ORDERED: LIDOCAINE (1%) 10 MG/1 ML VIAL 20 ML MDV INFILTRATI ONE (18:46)
[2020-02-14] MEDS ORDERED: SODIUM CHLORIDE 0.9% IRRIG SOLN 2000 ML IR ONE (18:46)
[2020-02-14] MEDS ORDERED: NEOSTIGMINE 10MG/10 ML INJ MDV ONE (18:59)
[2020-02-14] MEDS ORDERED: GLYCOPYRROLATE 0.4 MG/2 ML INJ ONE (18:59)
[2020-02-14] MEDS ORDERED: HYDROmorphone 1 MG/1 ML INJ IV PRN (19:14)
--- NOTE | 2020-02-14 19:16 | Post Operative Note ---
Pre-op diagnosis: acute appendicitis Post-op diagnosis: other (acute perforated appendicitis with abscess) Findings: Large phlegmon of mid to distal appendix with abscess cavity at right lateral abdominal wall containing pus. Perforated tip of the appendix Procedure: laparoscopic lysis of adhesions and appendectomy Anesthesia: QUYEN, local Surgeon: GHADA PHILLIPS Balance Bridge Inspector: MAIA MARTINEZ Estimated blood loss: 50-100ml Pathology: list (appendix) Specimen disposition: to lab Condition: stable Disposition: PACU
[2020-02-14] MEDS: SODIUM CHLORIDE 0.9% 1000 ML 1,000 ML IV SCH (21:33)
[2020-02-14] MEDS: MORPHINE 2 MG/1 ML INJ IV PRN (21:56)
[2020-02-15] MEDS: metroNIDAZOLE/NS 500 MG/100 ML 500 MG/100 ML BAG IV SCH ×4 (00:10→23:37)
[2020-02-15 04:46] LABS: Hemoglobin 10.4 gm/dl (10.1-14.3); Mean Corpuscular HGB Conc 34 % (30-34); Mean Corpuscular Volume 90 fl (79-97); Platelet Count 401 K/mm3 (140-440); Red Blood Count 3.46 M/mm3 (3.65-5.03)
[2020-02-15 05:02] LABS: Calcium 8.9 mg/dL (8.4-10.2)
[2020-02-15 07:04] LABS: Basophils % (Manual) 0 % (0.0-1.8); Eosinophils % (Manual) 0 % (0.0-4.3); Total Cells Counted 100
[2020-02-15 07:05] LABS: Ovalocytes Rare; Platelet Estimate Consistent w Auto; Spherocytes Rare
[2020-02-15] MEDS ORDERED: AMLODIPINE BESYLATE 5 MG PO SCH (10:00)
[2020-02-15] MEDS: MORPHINE 2 MG/1 ML INJ IV PRN (10:17)
[2020-02-15] MEDS: amLODIPine 5 MG TAB PO SCH (10:44)
[2020-02-15] MEDS: LISINOPRIL 5 MG TAB PO SCH (10:44)
--- NOTE | 2020-02-15 14:28 | Progress Note ---
Assessment and Plan 55-year-old female status post laparoscopic lysis of adhesions and appendectomy, POD 1 1. Acute appendicitis with perforation 2. UTI 3. DELICIA Plan: 1. adv to reg diet 2. IVF 3. IV abx 4. VICENTA drain care, strict I/Os 5. DVT ppx 6. prn pain control - will start PO percocet 7. OOB/ambulate 8. IS/pulm toilet 9. repeat CBC, CMP in am I explained the intraoperative findings to the patient. All questions were answered. Thank you, please call with questions or concerns Evaluation and treatment of this patient was during the time of the national and state emergency arising from COVID19 coronavirus pandemic. Treatment and proc edures performed meet the current and available best practice and guidelines for patient during the COVID pandemic. Subjective Date of service: 02/15/20 Narrative: Patient seen and examined. She states she had an uneventful night. No fevers, chills, nausea, vomiting. She is tolerating a clear liquid diet. She has been out of bed into the bathroom and has been voiding. She complains of some soreness around her incisions which is controlled with pain medication. Objective Vital Signs - 12hr 02/15/20 02/15/20 02/15/20 04:16 04:23 07:06 Temperature 97.4 F L 97.7 F Pulse Rate 61 58 L Respiratory 18 20 20 Rate Blood Pressure 118/77 147/79 O2 Sat by Pulse 93 98 Oximetry 02/15/20 02/15/20 10:00 11:07 Temperature 98.0 F Pulse Rate 71 Respiratory 20 Rate Blood Pressure 113/76 O2 Sat by Pulse 100 93 Oximetry - General physical appearance Narrative Exam: Gen.: Awake, alert, oriented 3. No apparent distress ENT: Trachea midline. No lymphadenopathy. No scleral icterus or conjunctival pallor CV: S1, S2 present Respiratory: No audible wheezes Abdomen: Soft, nondistended, appropriate isa-incisional tenderness to palpation. All incisions are clean, dry, intact. The right lower quadrant VICENTA drain has dark sanguinous drainage. No rebound, rigidity, guarding Extremities: No clubbing, cyanosis, edema - Labs 02/15/20 04:07 02/15/20 04:07 Diabetes panel 02/15/20 Range/Units 04:07 Sodium 140 (137-145) mmol/L Potassium 4.9 D (3.6-5.0) mmol/L Chloride 101.3 (98-107) mmol/L Carbon Dioxide 21 L (22-30) mmol/L BUN 23 H (7-17) mg/dL Creatinine 1.5 H (0.7-1.2) mg/dL Glucose 143 H (65-100) mg/dL Calcium 8.9 (8.4-10.2) mg/dL Calcium panel 02/15/20 Range/Units 04:07 Calcium 8.9 (8.4-10.2) mg/dL Pituitary panel 02/15/20 Range/Units 04:07 Sodium 140 (137-145) mmol/L Potassium 4.9 D (3.6-5.0) mmol/L Chloride 101.3 (98-107) mmol/L Carbon Dioxide 21 L (22-30) mmol/L BUN 23 H (7-17) mg/dL Creatinine 1.5 H (0.7-1.2) mg/dL Glucose 143 H (65-100) mg/dL Calcium 8.9 (8.4-10.2) mg/dL Adrenal panel 02/15/20 Range/Units 04:07 Sodium 140 (137-145) mmol/L Potassium 4.9 D (3.6-5.0) mmol/L Chloride 101.3 (98-107) mmol/L Carbon Dioxide 21 L (22-30) mmol/L BUN 23 H (7-17) mg/dL Creatinine 1.5 H (0.7-1.2) mg/dL Glucose 143 H (65-100) mg/dL Calcium 8.9 (8.4-10.2) mg/dL
--- NOTE | 2020-02-15 15:38 | Operative Report ---
Operative Report Operative Report: Date: 02/14/20 19:15 Pre-op diagnosis: acute appendicitis Post-op diagnosis: other (acute perforated appendicitis with abscess) Findings: Large phlegmon of mid to distal appendix with abscess cavity at right lateral abdominal wall containing pus. Perforated tip of the appendix Procedure: laparoscopic lysis of adhesions and appendectomy Anesthesia: QUYEN local Surgeon: GHADA PHILLIPS Portfolio Manager: MAIA MARTINEZ Estimated blood loss: 50-100ml Pathology: list (appendix) Specimen disposition: to lab Condition: stable Disposition: PACU HPI and indication: The patient is a 55-year-old female with history of morbid obesity presented to the emergency room with right lower quadrant abdominal pain. The patient was found to have acute appendicitis with localized peritonitis. It was recommended she undergo appendectomy. All risks, benefits, alternatives to surgery were discussed with the patient and questions answered. Consent was obtained. Procedure in detail patient was done found preoperative area, taken back to operating room and placed on operating tube table in supine position. After anesthesia was induced a bravo catheter was steriley placed by the circulating nurse. The abdomen was prepped and draped in usual sterile fashion and a time out was performed. Local anesthetic was infilitrated into all skin incision sites. Patient had a history of a previous ventral hernia repair. A dimas incision was made in the left upper quadrant through which a Veress needle was inserted. The Veress needle positioning was confirmed using the saline drop test and the abdomen insufflated to 15 mmHg without complication. The Veress needle was then removed and the incision elongated. Through this incision a 5 mm Optiview trocar was placed. The trocar appeared to be surrounded by adhesions with no injury seen to the bowel. The trocar was removed and a right upper quadrant 5 mm Optiview trocar was placed. The abdomen is inspected and there was no underlying injury to any of the abdominal structures. There were a large amount of adhesions from the omentum and the colon to the anterior abdominal wall specifically in the midline and left abdomen. An additional 5 mm right lower quadrant trocar was placed under direct visualization. Using the LigaSure the omental adhesions were taken down in order to make room on the abdominal wall for more trochars. A 5 mm suprapubic trocar was placed under direct visualization. A 12 mm left lower quadrant trocar was placed under direct visualization. The cecum was identified in the right lower quadrant and traced back to the terminal ileum. The base of the appendix was easily visualized and appeared unremarkable however as the appendix was followed to its distal aspect, there was a large phlegmon with severe inflammation. The appendix was retrocecal in the mid and distal portions were severely inflamed. The adhesions from the inflamed appendix to the lateral abdominal wall were bluntly dissected and an abscess cavity was entered. There was pus in the abscess cavity along the right lateral abdominal wall with friable tissue. The pus was evacuated using the suction device. The decision was made to transect the appendix at the base and then to ligate the mesentery. Using the [place], a window was made at the base of the appendix and the base of the appendix was transected with [place] flex 45 mm white load stapler. Using the LigaSure device the mesentery of the appendix was ligated close to the appendix and this was continued until the entire appendix was freed. The dissection took a prolonged period of time due to the severe inflammation. Once the entire appendix was dissected it was placed into an Endo Catch bag and removed via the 12 mm port. The right lower quadrant was irrigated and checked for hemostasis. No active bleeding was seen. The staple line was visualized and intact. A piece of Surgicel was packed into the abscess cavity and along the ligated mesentery. A 19 [place] Yvan drain was then introduced into the abdomen via the 12 mm port and brought out via the right lower quadrant 5 mm port. This was sutured into place using a 2-0 nylon drain stitch. The intra-abdominal portion of the drain was positioned in the right lower quadrant and paracolic gutter. The 12 mm port was then removed and the fascia closed with an interrupted 0 Vicryl suture using the Moises Pantoja device. The remainder of the ports were removed under direct visualization and the skin anesthetized once again with local anesthetic. Skin incisions wer closed using 4-0 Monocryl cuticular stitch and skin glue. At the end of the case, all sponge, instrument, sharp counts were correct x2. The patient was awoken from anesthesia, bravo catheter removed, and taken to PACU in stable condition.
[2020-02-15] MEDS: oxyCODONE /ACETAMINOPHEN 5-325MG TAB PO PRN (18:58)
--- NOTE | 2020-02-15 20:27 | Progress Note ---
Assessment and Plan - Patient Problems (1) Appendicitis with perforation Current Visit: Yes Status: Acute Plan to address problem: CT scan abdomen and pelvis reviewed, serial physical exam, surgery team consulted, IV antibiotic therapy, IV fluid resuscitation therapy, bowel rest, pain control, supportive care. Patient is status post surgical intervention today. Early ambulation, incentive spirometry, pain control, out of bed to chair, ambulate in hallway 3 times daily and PRN. (2) Acute kidney injury (DELICIA) with acute tubular necrosis (ATN) Current Visit: Yes Status: Acute Plan to address problem: CMP, IV fluid resuscitation therapy, monitor urine output every shift, (3) Systemic inflammatory response syndrome (SIRS) due to infectious process Current Visit: Yes Status: Acute Plan to address problem: CBC, CMP, chest x-ray, urinalysis, CT scan abdomen and pelvis, IV antibiotic therapy, repeat CBC in a.m. (4) Hyponatremia Current Visit: Yes Status: Acute Plan to address problem: IV fluid resuscitation therapy, BMP, repeat BMP in a.m. (5) UTI (urinary tract infection) Current Visit: Yes Status: Acute Qualifiers: Encounter type: initial encounter Plan to address problem: CBC, CMP, continued IV antibiotic therapy (6) Obesity hypoventilation syndrome Current Visit: Yes Status: Acute Plan to address problem: Submental oxygen, pulse oximetry, early ambulation, incentive spirometry, balanced diet, increase physical activity at discharge, outpatient bariatric surgery consult, outpatient pulmonology consult for sleep study. (7) DVT prophylaxis Current Visit: Yes Status: Acute Plan to address problem: SCD to bilateral lower extremities while in bed, patient is ambulatory History Interval history: 55 YO Female HD #2 with perforated appendicitis who is status post surgical intervention today. Patient lying in bed. Patient is appropriately tender on abdominal exam. Patient denies nausea, vomiting. Patient states that she feels much better today. No reported nursing events. Hospitalist Physical - Constitutional Vitals: Temp Pulse Resp BP Pulse Ox 97.4 F L 74 18 92/56 96 02/15/20 19:23 02/15/20 19:23 02/15/20 19:23 02/15/20 19:23 02/15/20 19:23 General appearance: Present: mild distress, obese - EENT Eyes: Present: PERRL, EOM intact ENT: hearing intact - Neck Neck: Present: supple - Respiratory Respiratory effort: normal Respiratory: bilateral: CTA - Cardiovascular Rhythm: regular Heart Sounds: Present: S1 & S2 - Extremities Extremities: no ischemia Peripheral Pulses: within normal limits - Abdominal General gastrointestinal: soft, non-distended, other (Appropriately tender) - Integumentary Integumentary: Present: clear, warm, dry - Psychiatric Psychiatric: appropriate mood/affect, cooperative - Neurologic Neurologic: CNII-XII intact Results - Labs CBC & Chem 7: 02/15/20 04:07 02/15/20 04:07 Labs: Laboratory Last Values WBC 16.9 K/mm3 (4.5-11.0) H 02/15/20 04:07 RBC 3.46 M/mm3 (3.65-5.03) L 02/15/20 04:07 Hgb 10.4 gm/dl (10.1-14.3) 02/15/20 04:07 Hct 31.0 % (30.3-42.9) 02/15/20 04:07 MCV 90 fl (79-97) 02/15/20 04:07 MCH 30 pg (28-32) 02/15/20 04:07 MCHC 34 % (30-34) 02/15/20 04:07 RDW 13.0 % (13.2-15.2) L 02/15/20 04:07 Plt Count 401 K/mm3 (140-440) 02/15/20 04:07 Lymph % (Auto) 12.0 % (13.4-35.0) L 02/14/20 12:52 [place] % (Auto) 7.6 % (0.0-7.3) H 02/14/20 12:52 Eos % (Auto) 0.2 % (0.0-4.3) 02/14/20 12:52 Baso % (Auto) 0.3 % (0.0-1.8) 02/14/20 12:52 Lymph # 1.9 K/mm3 (1.2-5.4) 02/14/20 12:52 [place] # 1.2 K/mm3 (0.0-0.8) H 02/14/20 12:52 Eos # 0.0 K/mm3 (0.0-0.4) 02/14/20 12:52 Baso # 0.1 K/mm3 (0.0-0.1) 02/14/20 12:52 Add Manual Diff Complete 02/15/20 04:07 Total Counted 100 02/15/20 04:07 Seg Neutrophils % Door To Door Sales Representative 02/15/20 04:07 Seg Neuts % (Manual) 96.0 % (40.0-70.0) H 02/15/20 04:07 Band Neutrophils % 0 % 02/15/20 04:07 Lymphocytes % (Manual) 2.0 % (13.4-35.0) L 02/15/20 04:07 Reactive Lymphs % (Man) 0 % 02/15/20 04:07 Monocytes % (Manual) 2.0 % (0.0-7.3) 02/15/20 04:07 Eosinophils % (Manual) 0 % (0.0-4.3) 02/15/20 04:07 Basophils % (Manual) 0 % (0.0-1.8) 02/15/20 04:07 Metamyelocytes % 0 % 02/15/20 04:07 Myelocytes % 0 % 02/15/20 04:07 Promyelocytes % 0 % 02/15/20 04:07 Blast Cells % 0 % 02/15/20 04:07 Nucleated RBC % Not Reportable 02/15/20 04:07 Seg Neutrophils # 12.9 K/mm3 (1.8-7.7) H 02/14/20 12:52 Seg Neutrophils # Man 16.2 K/mm3 (1.8-7.7) H 02/15/20 04:07 Band Neutrophils # 0.0 K/mm3 02/15/20 04:07 Lymphocytes # (Manual) 0.3 K/mm3 (1.2-5.4) L 02/15/20 04:07 Abs React Lymphs (Man) 0.0 K/mm3 02/15/20 04:07 Monocytes # (Manual) 0.3 K/mm3 (0.0-0.8) 02/15/20 04:07 Eosinophils # (Manual) 0.0 K/mm3 (0.0-0.4) 02/15/20 04:07 Basophils # (Manual) 0.0 K/mm3 (0.0-0.1) 02/15/20 04:07 Metamyelocytes # 0.0 K/mm3 02/15/20 04:07 Myelocytes # 0.0 K/mm3 02/15/20 04:07 Promyelocytes # 0.0 K/mm3 02/15/20 04:07 Blast Cells # 0.0 K/mm3 02/15/20 04:07 WBC Morphology Not Reportable 02/15/20 04:07 Hypersegmented Neuts Not Reportable 02/15/20 04:07 Hyposegmented Neuts Not Reportable 02/15/20 04:07 Hypogranular Neuts Not Reportable 02/15/20 04:07 Smudge Cells Not Reportable 02/15/20 04:07 Toxic Granulation Not Reportable 02/15/20 04:07 Toxic Vacuolation Not Reportable 02/15/20 04:07 Dohle Bodies Not Reportable 02/15/20 04:07 Pelger-Huet Anomaly Not Reportable 02/15/20 04:07 Lisa Rods Not Reportable 02/15/20 04:07 Platelet Estimate Consistent w auto 02/15/20 04:07 Clumped Platelets Not Reportable 02/15/20 04:07 Plt Clumps, EDTA Not Reportable 02/15/20 04:07 Large Platelets Not Reportable 02/15/20 04:07 Giant Platelets Not Reportable 02/15/20 04:07 Platelet Satelliting Not Reportable 02/15/20 04:07 Plt Morphology Comment Not Reportable 02/15/20 04:07 RBC Morphology Not Reportable 02/15/20 04:07 Dimorphic RBCs Not Reportable 02/15/20 04:07 Polychromasia Not Reportable 02/15/20 04:07 Hypochromasia Not Reportable 02/15/20 04:07 Poikilocytosis Not Reportable 02/15/20 04:07 Anisocytosis Not Reportable 02/15/20 04:07 Microcytosis Not Reportable 02/15/20 04:07 Macrocytosis Not Reportable 02/15/20 04:07 Spherocytes Rare 02/15/20 04:07 Pappenheimer Bodies Not Reportable 02/15/20 04:07 Sickle Cells Not Reportable 02/15/20 04:07 Target Cells Not Reportable 02/15/20 04:07 Tear Drop Cells Not Reportable 02/15/20 04:07 Ovalocytes Rare 02/15/20 04:07 Helmet Cells Not Reportable 02/15/20 04:07 [place] Bodies Not Reportable 02/15/20 04:07 [place] Rings Not Reportable 02/15/20 04:07 Alessia Cells Not Reportable 02/15/20 04:07 Bite Cells Not Reportable 02/15/20 04:07 Crenated Cell Not Reportable 02/15/20 04:07 Elliptocytes Not Reportable 02/15/20 04:07 Acanthocytes (Spur) Not Reportable 02/15/20 04:07 Rouleaux Not Reportable 02/15/20 04:07 Hemoglobin C Crystals Not Reportable 02/15/20 04:07 Schistocytes Not Reportable 02/15/20 04:07 Malaria parasites Not Reportable 02/15/20 04:07 Adeel Bodies Not Reportable 02/15/20 04:07 Hem Pathologist Commnt No 02/15/20 04:07 PT 13.8 Sec. (12.2-14.9) 02/14/20 12:52 INR 1.08 (0.87-1.13) 02/14/20 12:52 APTT 19.9 Sec. (24.2-36.6) L 02/14/20 12:52 Sodium 140 mmol/L (137-145) 02/15/20 04:07 Potassium 4.9 mmol/L (3.6-5.0) D 02/15/20 04:07 Chloride 101.3 mmol/L (98-107) 02/15/20 04:07 Carbon Dioxide 21 mmol/L (22-30) L 02/15/20 04:07 Anion Gap 23 mmol/L 02/15/20 04:07 BUN 23 mg/dL (7-17) H 02/15/20 04:07 Creatinine 1.5 mg/dL (0.7-1.2) H 02/15/20 04:07 Estimated GFR 44 ml/min 02/15/20 04:07 BUN/Creatinine Ratio 15 % 02/15/20 04:07 Glucose 143 mg/dL (65-100) H 02/15/20 04:07 Calcium 8.9 mg/dL (8.4-10.2) 02/15/20 04:07 Total Bilirubin 0.30 mg/dL (0.1-1.2) 06/09/20 12:52 AST 15 units/L (5-40) 02/14/20 12:52 ALT 17 units/L (7-56) 02/14/20 12:52 Alkaline Phosphatase 75 units/L (35-129) 02/14/20 12:52 Total Protein 8.0 g/dL (6.3-8.2) 02/14/20 12:52 Albumin 3.3 g/dL (3.9-5) L 02/14/20 12:52 Albumin/Globulin Ratio 0.7 % 02/14/20 12:52 Lipase 25 units/L (13-60) 02/14/20 12:52 Urine Color Dalia (Yellow) 02/14/20 12:20 Urine Turbidity Cloudy (Clear) 02/14/20 12:20 Urine pH 5.0 (5.0-7.0) 02/14/20 12:20 Ur Specific [place] 1.024 (1.003-1.030) 02/14/20 12:20 Urine Protein 30 mg/dl mg/dL (Negative) 02/14/20 12:20 Urine Glucose (UA) Neg mg/dL (Negative) 02/14/20 12:20 Urine Ketones Neg mg/dL (Negative) 02/14/20 12:20 Urine Blood Neg (Negative) 02/14/20 12:20 Urine Nitrite Neg (Negative) 02/14/20 12:20 Urine Bilirubin Sm (Negative) 02/14/20 12:20 Urine Ictotest Not Reportable 02/14/20 12:20 Urine Urobilinogen 4.0 mg/dL (<2.0) 02/14/20 12:20 Ur Leukocyte Esterase Tr (Negative) 02/14/20 12:20 Urine WBC (Auto) 10.0 /HPF (0.0-6.0) H 02/14/20 12:20 Urine RBC (Auto) 6.0 /HPF (0.0-6.0) 02/14/20 12:20 U Epithel Cells (Auto) 9.0 /HPF (0-13.0) 02/14/20 12:20 Urine Mucus 1+ /HPF 02/14/20 12:20 Blood Type O POSITIVE 02/14/20 12:52 Antibody Screen Negative 02/14/20 12:52 Microbiology: Microbiology 02/14/20 12:20 Urine,Clean Catch Urine Culture - Preliminary NO GROWTH AFTER 24 HOURS Zuniga/IV: Voiding Method Bedpan IV Catheter Type [Left Forearm Peripheral IV ] IV Catheter Type [Right Peripheral IV Forearm] IV Catheter Type [Left INT / Saline Lock Antecubital] Active Medications - Current Medications Current Medications: Generic Name Dose Route Start Last Admin Trade Name Freq PRN Reason Stop Dose Admin Acetaminophen 650 mg 02/14/20 15:32 02/15/20 04:23 Tylenol PO 650 mg Q4H PRN Administration Pain MILD(1-3)/Fever >100.5/RAMSEY Amlodipine Besylate 5 mg 02/15/20 10:00 02/15/20 10:44 Amlodipine PO Not Given QDAY [facility] Cyanocobalamin 1,000 mcg 03/13/20 10:00 Vitamin B-12 IM QMONTH CONCHA Fentanyl 50 mcg 02/14/20 16:08 Sublimaze IV Q5MIN PRN Pain , Severe (7-10) Hydromorphone HCl 0.5 mg 02/14/20 19:14 02/15/20 14:34 Dilaudid IV 0.5 mg Q3H PRN Administration Pain , Severe (7-10) Sodium Chloride 1,000 mls @ 150 mls/hr 02/14/20 15:45 02/14/20 21:33 Nacl 0.9% 1000 Ml IV 150 mls/hr DIRECT CONCHA Administration Levofloxacin/Dextrose 500 mg in 100 mls @ 100 mls/hr 02/14/20 17:00 02/15/20 18:30 Levaquin 500mg/100ml IV 100 mls/hr Q24H CONCHA Administration Protocol Metronidazole 500 mg in 100 mls @ 100 mls/hr 02/14/20 16:00 02/15/20 15:45 Flagyl 500 Mg/100 Ml IV 100 mls/hr Q8H CONCHA Administration Protocol Lisinopril 12.5 mg 02/15/20 10:00 02/15/20 10:44 Zestril PO Not Given QDAY CONCHA Ondansetron HCl 4 mg 02/14/20 15:32 Zofran IV Q8H PRN Nausea And Vomiting Ondansetron HCl 4 mg 02/14/20 16:08 Zofran IV ONCE PRN Nausea And Vomiting Oxycodone/Acetaminophen 2 tab 02/15/20 14:21 02/15/20 18:58 Percocet 5/325 PO 2 tab Q6H PRN Administration Pain, Moderate (4-6) Sodium Chloride 10 ml 02/14/20 22:00 02/15/20 10:18 Sodium Chloride Flush Syringe 10 Ml IV 10 ml BID CONCHA Administration Sodium Chloride 10 ml 02/14/20 15:32 Sodium Chloride Flush Syringe 10 Ml IV PRN PRN LINE FLUSH
[2020-02-15] MEDS: GABAPENTIN 300 MG CAP PO SCH (21:08)
[2020-02-15] MEDS: SODIUM CHLORIDE 0.9% 1000 ML 1,000 ML IV SCH (23:37)
[2020-02-16] MEDS: oxyCODONE /ACETAMINOPHEN 5-325MG TAB PO PRN ×2 (07:45→14:08)
[2020-02-16] MEDS: GABAPENTIN 300 MG CAP PO SCH (09:10)
[2020-02-16] MEDS: metroNIDAZOLE/NS 500 MG/100 ML 500 MG/100 ML BAG IV SCH (09:10)
[2020-02-16 09:38] LABS: Hematocrit 31.9 % (30.3-42.9); Hemoglobin 10.4 gm/dl (10.1-14.3); Mean Corpuscular HGB Conc 33 % (30-34); Mean Corpuscular Volume 92 fl (79-97); Platelet Count 433 K/mm3 (140-440); Red Blood Count 3.47 M/mm3 (3.65-5.03); Red Cell Distribution Width 13.4 % (13.2-15.2)
[2020-02-16] MEDS: SODIUM CHLORIDE 0.9% 1000 ML 1,000 ML IV SCH (11:04)
[2020-02-16] MEDS: LISINOPRIL 5 MG TAB PO SCH (11:40)
[2020-02-16] MEDS: amLODIPine 5 MG TAB PO SCH (11:40)
[2020-02-16] MEDS ORDERED: SODIUM CHLORIDE 0.9% 500 ML 500 ML IV ONE (12:35)
--- NOTE | 2020-02-16 12:39 | Progress Note ---
Assessment and Plan 55-year-old female status post laparoscopic lysis of adhesions and appendectomy, POD 2 1. Acute appendicitis with perforation 2. UTI 3. DELICIA Plan: 1. reg diet 2. still somewhat dehydrated. Give one time 500cc NS bolus. 3. IV abx - > transition to oral augmentin x total of 10 days of abx upon dc 4. VICENTA drain removed 5. DVT ppx 6. prn pain control - PO percocet 7. OOB/ambulate 8. IS/pulm toilet OK to dc home from surgery standpoint. Verbal and written dc instructions provided. Pt to follow up in surgery clinic in 2 wks. Thank you, please call with questions or concerns Evaluation and treatment of this patient was during the time of the national and state emergency arising from COVID19 coronavirus pandemic. Treatment and procedures performed meet the current and available best practice and guidelines for patient during the COVID pandemic. Subjective Date of service: 02/16/20 Narrative: Patient seen and examined. No acute complaints. She has been out of bed and ambulating on her own with her cane. No dizziness or lightheadedness no fevers, chills. She is tolerating a regular diet. No nausea, vomiting. Her pain is well controlled with p.o. Percocet. She is passing flatus but not had a bowel movement yet. Objective Vital Signs - 12hr 02/16/20 02/16/20 02/16/20 04:39 07:00 10:00 Temperature 97.5 F L 98.0 F Pulse Rate 64 62 Respiratory 20 18 Rate Respiratory 18 Rate [Abdomen] Blood Pressure 96/64 110/72 Blood Pressure [Right] O2 Sat by Pulse 94 98 Oximetry 02/16/20 12:26 Temperature 98 F Pulse Rate 71 Respiratory 20 Rate Respiratory Rate [Abdomen] Blood Pressure Blood Pressure 86/60 [Right] O2 Sat by Pulse 95 Oximetry - General physical appearance Narrative Exam: Gen.: Awake, alert, oriented 3. No apparent distress ENT: Trachea midline. No lymphadenopathy. No scleral icterus or conjunctival pallor CV: S1, S2 present Respiratory: No audible wheezes Abdomen: Soft, nondistended, nontender. Incisions clean, dry, intact. VICENTA drain with serosanguineous drainage. no rebound, rigidity, guarding Extremities: No clubbing, cyanosis, edema Procedure: Removal of VICENTA drain Bulb taken off suction. Skin suture cut and the drain was removed intact. - Labs 02/16/20 08:45 02/16/20 08:45 Diabetes panel 02/16/20 Range/Units 08:45 Sodium 138 (137-145) mmol/L Potassium 3.8 D (3.6-5.0) mmol/L Chloride 104.1 (98-107) mmol/L Carbon Dioxide 21 L (22-30) mmol/L BUN 22 H (7-17) mg/dL Creatinine 1.3 H (0.7-1.2) mg/dL Glucose 119 H (65-100) mg/dL Calcium 9.0 (8.4-10.2) mg/dL Calcium panel 02/16/20 Range/Units 08:45 Calcium 9.0 (8.4-10.2) mg/dL Pituitary panel 02/16/20 Range/Units 08:45 Sodium 138 (137-145) mmol/L Potassium 3.8 D (3.6-5.0) mmol/L Chloride 104.1 (98-107) mmol/L Carbon Dioxide 21 L (22-30) mmol/L BUN 22 H (7-17) mg/dL Creatinine 1.3 H (0.7-1.2) mg/dL Glucose 119 H (65-100) mg/dL Calcium 9.0 (8.4-10.2) mg/dL Adrenal panel 02/16/20 Range/Units 08:45 Sodium 138 (137-145) mmol/L Potassium 3.8 D (3.6-5.0) mmol/L Chloride 104.1 (98-107) mmol/L Carbon Dioxide 21 L (22-30) mmol/L BUN 22 H (7-17) mg/dL Creatinine 1.3 H (0.7-1.2) mg/dL Glucose 119 H (65-100) mg/dL Calcium 9.0 (8.4-10.2) mg/dL
--- NOTE | 2020-02-16 12:56 | Discharge Summary ---
Providers - Providers Date of Admission: 02/14/20 15:32 Attending physician: AYAN NICK 02/14/20 15:31 Consult to Physician [CONS] Urgent Comment: SHE MT Thakkar/DR PHILLIPS @1520 Consulting Provider: GHADA PHILLIPS Physician Instructions: Reason For Exam: acute appencities [facility] Condition: Stable Pertinent studies: CT scan abdomen and pelvis: Appendicitis with perforation. Procedures: Appendectomy. Hospital course: 55 YO Female with HTN, FM, Obesity Hypoventilation Syndrome presented to ED for evaluation. Patient stated that she had experienced abdominal pain over the 3 weeks prior to presentation to ED with progressively worsening symptoms over the previous 4 days. Patient acknowledged decreased oral intake over the previous 3 weeks resulting in a 14 pound weight loss. Patient also reported blood in her stool over the previous 1 day. Patient stated that her abdominal pain was 6/10, constant, dull in nature, associated with decreased appetite, associated with nausea, and multiple episodes of vomiting. Patient transported to [facility] via private vehicle for further care and evaluation. Patient seen and evaluated in the emergency department. Lab and imaging studies reviewed. Patient underwent CT scan of the abdomen and pelvis which revealed appendicitis with perforation. Patient also found to have acute kidney injury, urinary tract infection, as well as systemic inflammatory response syndrome, and hyponatremia. Patient adm itted to surgical floor for further care. Surgical team consulted in ED. Patient denied fever, chills, chest pain, palpitation, productive cough, skin rash, known exposure to COVID-19. Patient medically optimized preoperatively and on hospital day 2 patient underwent surgical intervention as per surgical team. Patient tolerated the procedure well. Patient treated with IV antibiotics and pain control. Patient diet advanced. Patient medically optimized on day of discharge. Patient pain is controlled with oral pain medication, patient is tolerating diet and acknowledges flatus and bowel m ovements. Patient subsequently discharged home and instructed to follow-up with primary care physician within 3 to 5 days. Patient instructed to follow-up with surgical team as instructed. Patient seen and evaluated prior to discharge but no significant new physical exam findings were elicited. Patient discharged home. 35 minutes dedicated to patient discharge and coordination of care. Disposition: TO HOME OR SELFCARE - Discharge Diagnoses (1) Appendicitis with perforation Status: Acute (2) Acute kidney injury (DELICIA) with acute tubular necrosis (ATN) Status: Acute (3) Systemic inflammatory response syndrome (SIRS) due to infectious process Status: Acute (4) Hyponatremia Status: Acute (5) UTI (urinary tract infection) Status: Acute Qualifiers: Encounter type: initial encounter (6) Obesity hypoventilation syndrome Status: Acute (7) DVT prophylaxis Status: Acute Core Measure Documentation - Palliative Care Palliative Care/ Comfort Measures: Not Applicable - Core Measures Any of the following diagnoses?: none Exam - Constitutional Vitals: Temp Pulse Resp BP Pulse Ox 98 F 71 20 86/60 95 02/16/20 12:26 02/16/20 12:26 02/16/20 12:26 02/16/20 12:02/16/20 12:26 General appearance: Present: obese - EENT Eyes: Present: PERRL ENT: hearing intact, clear oral mucosa - Neck Neck: Present: supple, normal ROM - Respiratory Respiratory effort: normal Respiratory: bilateral: CTA - Cardiovascular Heart Sounds: Present: S1 & S2. Absent: rub, click - Extremities Extremities: pulses symmetrical, No edema Peripheral Pulses: within normal limits - Abdominal General gastrointestinal: Present: soft, non-tender, non-distended, normal bowel sounds Female genitourinary: Present: normal - Integumentary Integumentary: Present: clear, warm, dry - Musculoskeletal Musculoskeletal: gait normal, strength equal bilaterally - Psychiatric Psychiatric: appropriate mood/affect, intact judgment & insight - Neurologic Neurologic: CNII-XII intact, moves all extremities Plan Activity: advance as tolerated Diet: low fat, low cholesterol, low salt Special Instructions: record daily weights, record daily BP diary Follow up with: GHADA PHILLIPS DO [Staff Physician] - 14 Days [facility] [Primary Care Provider] - 7 Days Prescriptions: Amoxicillin/Potassium Clav [Augmentin 875-125 Tablet] 1 each PO BID #14 tablet Fluconazole (Nf) [Diflucan TAB] 150 mg PO ONCE #2 tablet oxyCODONE /ACETAMINOPHEN [Percocet 5/325 mg] 2 tab PO Q6H PRN #20 tablet PRN Reason: Pain, Moderate (4-6)
[2020-02-16] MEDS ORDERED: DOCUSATE SODIUM 100 MG CAP PO SCH (13:00)
[2020-02-16 14:07] VITALS: BP 102/55
[2020-03-13] MEDS ORDERED: CYANOCOBALAMIN (VIT B-12) 1000 MCG/1 ML INJ IM SCH (10:00)
== END 2020-02-16 15:50 | disposition home or self-care (01) | DRG 338 ==
LOC: ED 11:10 → 3B-SURG 15:32
PROVIDERS: ADMIT Internal Medicine; ATTEND Internal Medicine
PROC: 0DTJ4ZZ Resection of Appendix, Percutaneous Endoscopic Approach (ICD-10-PCS; principal; 2020-02-14)
DX: K35.32 Acute appendicitis with perforation, localized peritonitis, and gangrene, without abscess (principal); N17.0 Acute kidney failure with tubular necrosis; N39.0 Urinary tract infection, site not specified; R65.10 Systemic inflammatory response syndrome (SIRS) of non-infectious origin without acute organ dysfunction; E87.1 Hypo-osmolality and hyponatremia; E66.2 Morbid (severe) obesity with alveolar hypoventilation; Z68.43 Body mass index [BMI] 50.0-59.9, adult; Z71.6 Tobacco abuse counseling; I10 Essential (primary) hypertension; Z90.721 Acquired absence of ovaries, unilateral; Z87.891 Personal history of nicotine dependence; Z82.49 Family history of ischemic heart disease and other diseases of the circulatory system; Z71.3 Dietary counseling and surveillance
CPT/HCPCS: 36415; 70450; 74176; 80048; 80053; 81001; 82271; 83690; 85007; 85025; 85027; 85610; 85730; 86850; 86900; 86901; 87086; 88302; 88304; 96374; 96375; 99406; G0378; A4217; C9113; J0330; J1100; J1170; J1956; J2270; J2405; J2543; J2704; J2710; J7030; J7040; J7120

== ENCOUNTER 2021-06-07 09:29 | Outpatient (CLI) | payer OTHER ==
--- NOTE | 2021-06-07 10:09 | XRay Report ---
XR spine lumbosacral 2-3V INDICATION / CLINICAL INFORMATION: [id number]. COMPARISON: None available. FINDINGS: BONES/JOINT(S): No acute fracture or subluxation. There is moderate diffuse spondylosis with small an terior and lateral osteophytes at multiple levels, greatest at L3-4 and at L5-S1. There is also mild left convex scoliosis with the apex at the L3 level. SOFT TISSUES: Atherosclerotic calcification in the abdominal aorta. ADDITIONAL FINDINGS: None. Signer Name: Leonidas Graham MD Signed: 06/07/2021 10:05 AM Workstation Name: [id number]
== END 2021-06-07 09:30 | disposition home or self-care (01) ==
LOC: XRAY 09:29
PROVIDERS: ATTEND Internal Medicine
DX: M47.816 Spondylosis without myelopathy or radiculopathy, lumbar region (principal); M25.78 Osteophyte, vertebrae; I70.0 Atherosclerosis of aorta
CPT/HCPCS: 72100